=== PATIENT | male | born 1945 | race Caucasian/White ===

== ENCOUNTER 2016-10-28 14:36 | Observation (INO) | payer OTHER, MEDICARE ==
[2016-10-28] MEDS ORDERED: SODIUM CHLORIDE 0.9% 1,000 ML IV STA (15:11)
[2016-10-28 15:46] LABS: Appearance,Urine Clear (Clear); Basophils # (A) 0.1 k/uL (0-0.2); Basophils % (A) 1 %; Bilirubin,Urine Negative (Negative); CH 30.9; CHCM 33.8; Eosinophils # (A) 0.2 k/uL (0-0.7); Eosinophils % (A) 2 %; Glucose,Urine (UA) Negative (Negative); HCT 55.5 % (39.0-53.0); HDW 2.33; HGB 17.8 gm/dL (13.0-17.5); Ketones,Urine Negative (Negative); Leukocyte Esterase,Urine Negative (Negative); Luc % (Auto) 1; Lymphocytes # (A) 2.3 k/uL (1.0-4.8); Lymphocytes % (A) 25 %; MCH 29.4 pg (25.0-35.0); MCV 91.8 fL (80.0-100.0); Mean Platelet Volume 7.7; Monocytes # (A) 0.5 k/uL (0-1.0); Monocytes % (A) 6 %; Neutrophils # (A) 5.9 k/uL (1.3-7.7); Neutrophils % (A) 65 %; Nitrite,Urine Negative (Negative); PH, Urine 6.5 (5.0-8.0); Protein,Urine Negative (Negative); RBC 6.05 m/uL (4.30-5.90); RDW 12.3 % (11.5-15.5); Specific Gravity,Urine 1.003 (1.001-1.035); UA Billing (MACRO vs. MICRO) CHEM; Urobilinogen,Urine <2.0 mg/dL (<2.0); WBC 9.1 k/uL (3.8-10.6); WBC (Perox) 9.03
[2016-10-28 15:55] LABS: Partial Thromboplastin Time 25.9 sec (22.0-30.0); Prothrombin Time 10.2 sec (9.0-12.0)
[2016-10-28 16:02] LABS: ALT 39 U/L (21-72); AST 30 U/L (17-59); Alcohol 53 mg/dL; Alkaline Phosphatase 85 U/L (38-126); Anion Gap 14 mmol/L; Blood Urea Nitrogen 8 mg/dL (9-20); Calcium 10.2 mg/dL (8.4-10.2); Carbon Dioxide 27 mmol/L (22-30); Chloride 100 mmol/L (98-107); Glucose 95 mg/dL (74-99); Non-African American GFR(MDRD) >60 (>60 ml/min/1.73 sqM); Potassium 4.3 mmol/L (3.5-5.1); Sodium 141 mmol/L (137-145); Total Bilirubin 0.5 mg/dL (0.2-1.3)
[2016-10-28 16:07] LABS: Creatine Kinase 201 U/L (55-170)
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
[2016-10-28 16:19] LABS: Troponin I <0.012 ng/mL (0.000-0.034)
[2016-10-28 16:20] LABS: Creatine Kinase MB 6.2 ng/mL (0.0-2.4)
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
[2016-10-28] MEDS ORDERED: NALOXONE 0.4 MG/ML 1 ML VIAL IV PRN (18:02)
[2016-10-28] MEDS ORDERED: ACETAMINOPHEN TAB 325 MG TAB PO PRN (18:02)
[2016-10-28] MEDS ORDERED: IBUPROFEN 400 MG TAB PO PRN (18:02)
[2016-10-28] MEDS ORDERED: oxyCODONE-APAP 5-325MG 1 EACH TAB PO PRN (18:02)
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
[2016-10-28] MEDS ORDERED: BETAMETHASONE DIPROPIONATE 0.05% CREAM 15 GM TUBE TOPICAL PRN (18:07)
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
[2016-10-28] MEDS ORDERED: POLYMYXIN B-TRIMETHOPRIM (10,000-1) OPHTH DROPS 10 ML BTL RIGHT EYE SCH (22:00)
[2016-10-28 22:31] VITALS: BMI 27.8
[2016-10-29] MEDS: KETOROLAC 30 MG/ML 1 ML VIAL IVP PRN ×3 (02:15→20:42)
[2016-10-29 07:53] VITALS: RESP 18
[2016-10-29] MEDS ORDERED: CHROMIUM PICOLINATE 1000 MCG PO SCH (09:00)
[2016-10-29] MEDS ORDERED: GLUTAMINE 500 MG PO SCH (09:00)
[2016-10-29] MEDS ORDERED: NON-FORMULARY DRUG (Ubidecarenone [Co Q-10] 100 MG) PO SCH (09:00)
[2016-10-29] MEDS ORDERED: NON-FORMULARY DRUG (Fish Oil/Dha/Epa [Fish Oil 1,200 Mg Fish Oil] 1 CAP) PO SCH (09:00)
[2016-10-29] MEDS ORDERED: NON-FORMULARY DRUG (Gluc/Chon-Msm#1/C/Mang/Bos/Bor [Glucosamine-Chondroitin Tablet] 1 TAB) PO SCH (09:00)
--- NOTE | 2016-10-29 09:54 | US ---
EXAMINATION TYPE: US carotid duplex BILAT DATE OF EXAM: 10/29/2016 9:30 AM COMPARISON: NONE CLINICAL HISTORY: US. Syncope EXAM MEASUREMENTS: RIGHT: Peak Systolic Velocity (PSV) cm/sec ----- Right CCA: 62.4 ----- Right ICA: 84.0 ----- Right ECA: 91.8 ICA/CCA ratio: 1.3 RIGHT: End Diastole cm/sec ----- Right CCA: 14.4 ----- Right ICA: 28.3 ----- Right ECA: 7.6 LEFT: Peak Systolic Velocity (PSV) cm/sec ----- Left CCA: 71.4 ----- Left ICA: 90.5 ----- Left ECA: 99.5 ICA/CCA ratio: 1.3 LEFT: End Diastole cm/sec ----- Left CCA: 17.5 ----- Left ICA: 32.2 ----- Left ECA: 11.5 VERTEBRALS (direction of flow): Right Vertebral: Antegrade Left Vertebral: Antegrade Findings: Mild plaque noted bilateral bifurcations. No increased velocities. No significant stenosis. Incidental finding: complex solid nodule right lower lobe of thyroid = 1.1 x 1.0 x 1.1cm IMPRESSION: 1. Mild plaque with no significant hemodynamic stenosis bilaterally 2. Incidental note made of a 1.1 cm right thyroid nodule Criteria for Assigning % of Stenosis / Diameter reduction (Estimation based on the indirect measurements of the internal carotid artery velocities (ICA PSV). 1. Normal (no stenosis)=ICA PSV < 125 cm/s: ratio < 2.0: ICA EDV<40 cm/s. 2. Less than 50% stenosis=ICA PSV < 125 cm/s: ratio < 2.0: ICA EDV<40 cm/s. 3. 50 to 69% stenosis=ICA PSV of 125 to 230 cm/s: ration 2.0 ? 4.0: ICA EDV 40-100 cm/s. 4. Greater than 70% stenosis to near occlusion= ICA PSV > 230 cm/s: ratio > 4.0: ICA EDV > 100 cm/s. 5. Near occlusion= ICA PSV velocities may be low or undetectable: variable ratio and ICA EDV. 6. Total occlusion=unable to detect flow.
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
--- NOTE | 2016-10-29 11:03 | ECHOF ---
Referral Reason:syncope MEASUREMENTS -------- HEIGHT: 165.1 cm WEIGHT: 77.1 kg BP: 164/97 RVIDd: 2.5 cm (< 3.3) IVSd: 1.0 cm (0.6 - 1.1) LVIDd: 3.8 cm (3.9 - 5.3) LVPWd: 1.0 cm (0.6 - 1.1) IVSs: 1.6 cm LVIDs: 2.8 cm LVPWs: 1.6 cm LA Diam: 3.0 cm (2.7 - 3.8) LAESV Index (A-L): 26.24 ml/m Ao Diam: 3.6 cm (2.0 - 3.7) AV Cusp: 1.5 cm (1.5 - 2.6) LA Diam: 3.1 cm (2.7 - 3.8) MV EXCURSION: 8.330 mm (> 18.000) MV EF SLOPE: 62 mm/s (70 - 150) EPSS: 0.6 cm MV E Ben: 0.78 m/s MV DecT: 262 ms MV A Ben: 0.86 m/s MV E/A Ratio: 0.91 RAP: 5.00 mmHg RVSP: 23.12 mmHg FINDINGS -------- Sinus rhythm. This was a technically good study. Left ventricular wall thickness is normal. Overall left ventricular systolic function is normal with, an EF between 55 - 60 %. The right ventricle is normal in size. Normal LA size by volume 22+/-6 ml/m2. Aortic valve is trileaflet and is mildly thickened. The mitral valve leaflets are mildly thickened. Mild mitral annular calcification present. There is trace mitral regurgitation. Trace tricuspid regurgitation present. Right ventricular systolic pressure is normal at < 35 mmHg. Pulmonic valve appears structurally normal. The aortic root size is normal. Normal inferior vena cava with normal inspiratory collapse consistent with estimated right atrial pressure of 5 mmHg. Echo free space may represent effusion or a pericardial fat pad. CONCLUSIONS -------- 1. Sinus rhythm. 2. There is trace mitral regurgitation. 3. Trace tricuspid regurgitation present. 4. Right ventricular systolic pressure is normal at < 35 mmHg. 5. Pulmonic valve appears structurally normal. 6. The aortic root size is normal. 7. Echo free space may represent effusion or a pericardial fat pad. 8. This was a technically good study. 9. Left ventricular wall thickness is normal. 10. Overall left ventricular systolic function is normal with, an EF between 55 - 60 %. 11. The right ventricle is normal in size. 12. Normal LA size by volume 22+/-6 ml/m2. 13. Aortic valve is trileaflet and is mildly thickened. 14. The mitral valve leaflets are mildly thickened. 15. Mild mitral annular calcification present. CRA OFFICER: Elisha Chairez RDCS
[2016-10-29 11:56] LABS: Basophils % (A) 0 %; CH 30.8; CHCM 33.4; Eosinophils # (A) 0.1 k/uL (0-0.7); Eosinophils % (A) 1 %; HCT 50.4 % (39.0-53.0); HDW 2.27; HGB 16.4 gm/dL (13.0-17.5); Luc % (Auto) 1; Lymphocytes # (A) 1.8 k/uL (1.0-4.8); Lymphocytes % (A) 20 %; MCH 30.2 pg (25.0-35.0); MCHC 32.6 g/dL (31.0-37.0); MCV 92.6 fL (80.0-100.0); Mean Platelet Volume 7.3; Monocytes # (A) 0.5 k/uL (0-1.0); Monocytes % (A) 6 %; Neutrophils # (A) 6.5 k/uL (1.3-7.7); Neutrophils % (A) 72 %; RBC 5.44 m/uL (4.30-5.90); RDW 12.3 % (11.5-15.5); WBC 9.1 k/uL (3.8-10.6)
[2016-10-29 12:07] LABS: ALT 44 U/L (21-72); AST 29 U/L (17-59); Alkaline Phosphatase 73 U/L (38-126); Anion Gap 8 mmol/L; Blood Urea Nitrogen 11 mg/dL (9-20); Calcium 9.5 mg/dL (8.4-10.2); Carbon Dioxide 26 mmol/L (22-30); Chloride 103 mmol/L (98-107); Creatine Kinase 300 U/L (55-170); Glucose 93 mg/dL (74-99); Non-African American GFR(MDRD) >60 (>60 ml/min/1.73 sqM); Potassium 4.5 mmol/L (3.5-5.1); Sodium 137 mmol/L (137-145); Total Bilirubin 0.9 mg/dL (0.2-1.3); Total Protein 6.9 g/dL (6.3-8.2)
[2016-10-29] MEDS ORDERED: hydrALAZINE HCL 25 MG TAB PO STA (12:13)
[2016-10-29] MEDS: FAMOTIDINE 20 MG TAB PO SCH (12:27)
[2016-10-29] MEDS: ASPIRIN 81 MG CHEW PO SCH (12:27)
[2016-10-29] MEDS: NICOTINE 21MG/24HR PATCH TRANSDERM SCH (13:55)
[2016-10-29] MEDS ORDERED: LORazepam 2 MG/ML SYRINGE IV PRN ×3 (14:39)
[2016-10-29] MEDS: MULTIVITAMINS, THERA 1 EACH TAB PO SCH (17:38)
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
[2016-10-29] MEDS: HEPARIN SODIUM,PORCINE 5,000 UNIT/ML 1 ML VIAL SQ SCH ×2 (20:42→20:48)
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
[2016-10-30] MEDS: HEPARIN SODIUM,PORCINE 5,000 UNIT/ML 1 ML VIAL SQ SCH (08:55)
[2016-10-30] MEDS: FAMOTIDINE 20 MG TAB PO SCH (08:55)
[2016-10-30] MEDS: NICOTINE 21MG/24HR PATCH TRANSDERM SCH (08:55)
[2016-10-30] MEDS: ASPIRIN 81 MG CHEW PO SCH (08:56)
[2016-10-30] MEDS: MULTIVITAMINS, THERA 1 EACH TAB PO SCH (08:57)
[2016-10-30] MEDS ORDERED: amLODIPine 5 MG TAB PO SCH (09:00)
[2016-10-30] MEDS ORDERED: THIAMINE 100 MG TAB PO SCH (12:00)
[2016-10-30] MEDS ORDERED: FOLIC ACID 1 MG TAB PO SCH (12:00)
[2016-10-30] MEDS ORDERED: MULTIVITAMINS, THERA 1 EACH TAB PO SCH (12:00)
[2016-10-30 12:13] VITALS: BP 142/79; PULSE 69; TEMP 98.3
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
== END 2016-10-30 13:40 | disposition home or self-care (01) ==
LOC: EC 14:36 → 3OBS 18:02
PROVIDERS: ADMIT Internal Medicine; ATTEND Internal Medicine
DX: S20.212A Contusion of left front wall of thorax, initial encounter (principal); S20.211A Contusion of right front wall of thorax, initial encounter; R55 Syncope and collapse; V49.49XA Driver injured in collision with other motor vehicles in traffic accident, initial encounter; Y92.410 Unspecified street and highway as the place of occurrence of the external cause; M50.90 Cervical disc disorder, unspecified, unspecified cervical region; E04.1 Nontoxic single thyroid nodule; F10.129 Alcohol abuse with intoxication, unspecified; Y90.2 Blood alcohol level of 40-59 mg/100 ml; F17.200 Nicotine dependence, unspecified, uncomplicated; I10 Essential (primary) hypertension; I16.1 Hypertensive emergency; Z79.82 Long term (current) use of aspirin; Z82.49 Family history of ischemic heart disease and other diseases of the circulatory system; Z79.52 Long term (current) use of systemic steroids; Z79.899 Other long term (current) drug therapy
CPT/HCPCS: 99291; 96361 ×3; 36415; 94760; 95819; 93005; 93306; 80053 ×2; 82550 ×2; 82553; 84484 ×2; 85025 ×2; 85610; 85730; 81003; 80306; 80320; 72070; 71020; 72170; 93880; 72125; 70450; G0378 ×3; J1885

== ENCOUNTER 2016-11-06 17:28 | Inpatient (IN) | payer MEDICARE ==
[2016-11-06] MEDS ORDERED: SODIUM CHLORIDE 0.9% 1,000 ML IV STA (17:57)
[2016-11-06] MEDS ORDERED: RX INFO: IV CONTRAST WAS GIVEN 1 EACH MISC MISCELLANE PRN (17:57)
[2016-11-06] MEDS ORDERED: guaiFENesin-Coden 100-10MG/5ML 10 ML CUP PO STA (17:58)
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
[2016-11-06 18:35] LABS: Basophils % (A) 1 %; CHCM 34.8; Eosinophils # (A) 0.3 k/uL (0-0.7); Eosinophils % (A) 3 %; HCT 48.4 % (39.0-53.0); HDW 2.31; HGB 16.1 gm/dL (13.0-17.5); Luc # (Auto) 0.16; Luc % (Auto) 2; Lymphocytes # (A) 2.2 k/uL (1.0-4.8); Lymphocytes % (A) 29 %; MCH 29.7 pg (25.0-35.0); MCHC 33.3 g/dL (31.0-37.0); MCV 89.3 fL (80.0-100.0); Mean Platelet Volume 6.7; Monocytes # (A) 0.3 k/uL (0-1.0); Monocytes % (A) 4 %; Neutrophils # (A) 4.6 k/uL (1.3-7.7); Neutrophils % (A) 61 %; RBC 5.42 m/uL (4.30-5.90); RDW 12.3 % (11.5-15.5); WBC 7.6 k/uL (3.8-10.6); WBC (Perox) 7.51
[2016-11-06 18:48] LABS: Partial Thromboplastin Time 26.3 sec (22.0-30.0); Prothrombin Time 10.4 sec (9.0-12.0)
[2016-11-06 18:57] LABS: Creatine Kinase 87 U/L (55-170)
[2016-11-06 19:01] LABS: ALT 37 U/L (21-72); AST 30 U/L (17-59); Alkaline Phosphatase 60 U/L (38-126); Anion Gap 11 mmol/L; Blood Urea Nitrogen 11 mg/dL (9-20); Calcium 9.5 mg/dL (8.4-10.2); Carbon Dioxide 21 mmol/L (22-30); Chloride 98 mmol/L (98-107); Glucose 79 mg/dL (74-99); Non-African American GFR(MDRD) >60 (>60 ml/min/1.73 sqM); Sodium 130 mmol/L (137-145); Total Bilirubin 0.7 mg/dL (0.2-1.3); Total Protein 7.4 g/dL (6.3-8.2)
[2016-11-06 19:10] LABS: Creatine Kinase MB 1.8 ng/mL (0.0-2.4); Troponin I <0.012 ng/mL (0.000-0.034)
--- NOTE | 2016-11-06 19:10 | CT ---
EXAMINATION TYPE: CT angio chest DATE OF EXAM: 11/06/2016 6:28 PM COMPARISON: NONE HISTORY: 70-year-old male with hemoptysis and chest discomfort TECHNIQUE: Contiguous axial scanning of the chest performed with IV Contrast, patient injected with 1 00 mL of Omnipaque 350. Coronal and sagittal MIP reconstructions performed. CT DLP: 337.9 mGycm Automated exposure control for dose reduction was used. FINDINGS: Heart is normal size without pericardial effusion. Mild coronary artery calcifications are present. Ascending aorta is normal caliber with bovine configuration to the aortic arch. There is mild aneurys m of the upper descending thoracic aorta at 3.4 cm and ectasia of the lower descending thoracic aorta at 2.9 cm. Satisfactory opacification of the pulmonary arterial system without evidence for pulmonary embolus. There is moderate diffuse bronchial wall thickening and mild centrilobular emphysema in the upper to mid lungs. There is some patchy groundglass in both mid and lower lungs. No argenis consolidation or pl eural effusion.. Visualized upper abdomen shows a 1.8 cm nodule within the left adrenal gland with attenuation 1.8 Ian nsfield units compatible with a lipid rich adrenal adenoma. Bones: Endplate spondylosis mid to lower thoracic spine. No osseous destructive process. Appears to b e an obliquely oriented fracture of the mid sternal body. No significant adjacent soft tissue swellin g. Chronic injury is favored. IMPRESSION: 1. THERE APPEARS TO BE AN OBLIQUELY ORIENTED FRACTURE OF THE MID STERNAL BODY WITHOUT SIGNIFICANT ADJ ACENT SOFT TISSUE SWELLING. A CHRONIC INJURY WITH HEALED FRACTURE DEFORMITY IS FAVORED. THIS WILL REQ UIRE CLINICAL CORRELATION. 2. NO EVIDENCE FOR PULMONARY EMBOLUS. 3. COPD WITH MILD EMPHYSEMA. 4. PATCHY GROUNDGLASS IN THE LOWER LUNGS COULD REPRESENT AN INTERSTITIAL PNEUMONITIS SUCH DIP OR N SIP. 5. 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 6. 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
[2016-11-06 19:13] LABS: Potassium 5.1 mmol/L (3.5-5.1)
--- NOTE | 2016-11-06 19:16 | XR ---
EXAMINATION TYPE: XR chest 2V DATE OF EXAM: 11/06/2016 6:46 PM COMPARISON: CT chest earlier today and prior radiographs from 03/12/2017 HISTORY: 70-year-old male difficulty breathing and coughing up bright red blood today TECHNIQUE: PA and lateral views FINDINGS: Heart is normal size. Mild elongation of the thoracic aorta. Peribronchial cuffing with interstitial prominence similar to prior. Hyperinflation with flattening of hemidiaphragms. No consolidation or pl eural effusion. IMPRESSION: COPD. Suspect a prominent component of chronic bronchitis versus superimposed acute bronchitis.
[2016-11-06] MEDS ORDERED: PNEUMONIA PROTOCOL UTILIZED 1 EACH MISC PO PRN (20:19)
[2016-11-06] MEDS ORDERED: BETAMETHASONE DIPROPIONATE 0.05% CREAM 15 GM TUBE TOPICAL PRN (20:22)
[2016-11-06] MEDS ORDERED: guaiFENesin-Coden 100-10MG/5ML 10 ML CUP PO PRN (20:23)
[2016-11-06] MEDS ORDERED: FUROSEMIDE 10 MG/ML 2 ML VIAL IV ONE (20:32)
[2016-11-06] MEDS ORDERED: FAMOTIDINE 20 MG TAB PO PRN (20:45)
[2016-11-06] MEDS ORDERED: TAMSULOSIN 0.4 MG CAP.ER.24H PO SCH (21:57)
[2016-11-06] MEDS ORDERED: amLODIPine 2.5 MG TAB PO SCH (21:58)
[2016-11-06] MEDS: SODIUM CHLORIDE 0.9% 1,000 ML IV SCH (22:09)
[2016-11-06] MEDS: TAMSULOSIN 0.4 MG CAP.ER.24H PO SCH (22:16)
[2016-11-06] MEDS: amLODIPine 2.5 MG TAB PO SCH (22:17)
[2016-11-06 22:43] VITALS: BMI 28.2
--- NOTE | 2016-11-07 07:47 | XR ---
EXAMINATION TYPE: XR chest 2V DATE OF EXAM: 11/07/2016 6:43 AM COMPARISON: 11/06/2016 HISTORY: 70-year-old male coughing up blood, pneumonia TECHNIQUE: Frontal and lateral views FINDINGS: The cardiomediastinal silhouette, aorta, and pulmonary vasculature are within normal limits. There is mild diffuse interstitial prominence and mild hyperinflation with flattening of the hemidiaphragms a nd increased retrosternal clear space. No significant change from prior exam. No consolidation or ple ural effusion. IMPRESSION: Stable changes of COPD. No acute change seen.
[2016-11-07] MEDS: LACTOBACILLUS ACIDOPH & BULGAR 1 EACH PACKET PO SCH (08:22)
[2016-11-07] MEDS ORDERED: TAMSULOSIN 0.4 MG CAP.ER.24H PO SCH (09:00)
[2016-11-07] MEDS ORDERED: amLODIPine 2.5 MG TAB PO SCH (09:00)
[2016-11-07 10:23] LABS: Basophils # (A) 0.1 k/uL (0-0.2); Basophils % (A) 1 %; CH 30.7; CHCM 34.1; Eosinophils # (A) 0.2 k/uL (0-0.7); Eosinophils % (A) 3 %; HCT 51.2 % (39.0-53.0); HDW 2.31; HGB 16.9 gm/dL (13.0-17.5); Luc % (Auto) 1; Lymphocytes # (A) 1.9 k/uL (1.0-4.8); Lymphocytes % (A) 22 %; MCH 29.9 pg (25.0-35.0); MCHC 33.1 g/dL (31.0-37.0); MCV 90.3 fL (80.0-100.0); Mean Platelet Volume 7.5; Monocytes # (A) 0.5 k/uL (0-1.0); Monocytes % (A) 6 %; Neutrophils # (A) 5.8 k/uL (1.3-7.7); Neutrophils % (A) 67 %; RBC 5.67 m/uL (4.30-5.90); RDW 12.4 % (11.5-15.5); WBC 8.6 k/uL (3.8-10.6); WBC (Perox) 8.54
[2016-11-07 10:31] LABS: ALT 35 U/L (21-72); AST 20 U/L (17-59); Alkaline Phosphatase 73 U/L (38-126); Anion Gap 9 mmol/L; Blood Urea Nitrogen 15 mg/dL (9-20); Calcium 9.7 mg/dL (8.4-10.2); Carbon Dioxide 28 mmol/L (22-30); Chloride 98 mmol/L (98-107); Glucose 89 mg/dL (74-99); Non-African American GFR(MDRD) >60 (>60 ml/min/1.73 sqM); Potassium 4.9 mmol/L (3.5-5.1); Sodium 135 mmol/L (137-145); Total Bilirubin 0.5 mg/dL (0.2-1.3); Total Protein 7.1 g/dL (6.3-8.2)
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
[2016-11-07] MEDS: SODIUM CHLORIDE 0.9% 1,000 ML IV SCH (11:04)
[2016-11-07] MEDS: FAMOTIDINE 20 MG TAB PO SCH ×2 (11:42→21:00)
[2016-11-07] MEDS: AZITHROMYCIN 500 MG in SODIUM CHLORIDE 0.9% 250 ML IVPB SCH (11:43)
[2016-11-07] MEDS: IPRATROPIUM-ALBUTEROL 3 ML NEB INHALATION SCH ×3 (11:58→19:58)
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
[2016-11-07] MEDS ORDERED: IV VANCOMYCIN PER PHARMACY 1 EACH MISC MISCELLANE PRN (15:33)
[2016-11-07] MEDS: VANCOMYCIN 1,500 MG in SODIUM CHLORIDE 0.9% 250 ML IVPB SCH (17:30)
[2016-11-07] MEDS: amLODIPine 2.5 MG TAB PO SCH (21:00)
[2016-11-07] MEDS: TAMSULOSIN 0.4 MG CAP.ER.24H PO SCH (21:00)
[2016-11-08] MEDS: VANCOMYCIN 1,500 MG in SODIUM CHLORIDE 0.9% 250 ML IVPB SCH (05:29)
[2016-11-08] MEDS: IPRATROPIUM-ALBUTEROL 3 ML NEB INHALATION SCH ×2 (07:49→11:04)
[2016-11-08 08:19] LABS: ALT 36 U/L (21-72); AST 18 U/L (17-59); Alkaline Phosphatase 67 U/L (38-126); Anion Gap 7 mmol/L; Blood Urea Nitrogen 12 mg/dL (9-20); Calcium 9.4 mg/dL (8.4-10.2); Carbon Dioxide 28 mmol/L (22-30); Chloride 103 mmol/L (98-107); Glucose 88 mg/dL (74-99); Non-African American GFR(MDRD) >60 (>60 ml/min/1.73 sqM); Potassium 5.4 mmol/L (3.5-5.1); Sodium 138 mmol/L (137-145); Total Bilirubin 0.6 mg/dL (0.2-1.3); Total Protein 6.5 g/dL (6.3-8.2)
[2016-11-08 08:32] LABS: Basophils # (A) 0.1 k/uL (0-0.2); Basophils % (A) 1 %; CH 30.6; CHCM 33.5; Eosinophils # (A) 0.3 k/uL (0-0.7); Eosinophils % (A) 4 %; HCT 49.1 % (39.0-53.0); HDW 2.28; Luc % (Auto) 1; Lymphocytes # (A) 1.8 k/uL (1.0-4.8); Lymphocytes % (A) 23 %; MCH 29.8 pg (25.0-35.0); MCHC 32.6 g/dL (31.0-37.0); MCV 91.5 fL (80.0-100.0); Mean Platelet Volume 6.9; Monocytes # (A) 0.4 k/uL (0-1.0); Monocytes % (A) 5 %; Neutrophils % (A) 66 %; RBC 5.37 m/uL (4.30-5.90); RDW 12.3 % (11.5-15.5); WBC 7.6 k/uL (3.8-10.6); WBC (Perox) 7.79
[2016-11-08 09:15] VITALS: BP 128/85; RESP 20; TEMP 96.4
[2016-11-08] MEDS: FAMOTIDINE 20 MG TAB PO SCH (09:17)
[2016-11-08] MEDS: AZITHROMYCIN 500 MG in SODIUM CHLORIDE 0.9% 250 ML IVPB SCH (09:17)
[2016-11-08] MEDS: LACTOBACILLUS ACIDOPH & BULGAR 1 EACH PACKET PO SCH (09:17)
[2016-11-08 11:06] VITALS: PULSE 64
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
[2016-11-09] MEDS ORDERED: VANCOMYCIN TROUGH DUE 1 EACH MISC MISCELLANE ONE (05:00)
[2016-11-09] MEDS ORDERED: AZITHROMYCIN 500 MG TAB PO SCH (09:00)
== END 2016-11-08 14:34 | disposition home or self-care (01) | DRG 184 ==
LOC: EC 17:28 → 4MS4W 20:20
PROVIDERS: ADMIT Internal Medicine; ATTEND Internal Medicine
DX: S22.22XA Fracture of body of sternum, initial encounter for closed fracture (principal); R04.2 Hemoptysis; J44.0 Chronic obstructive pulmonary disease with (acute) lower respiratory infection; I71.2 Thoracic aortic aneurysm, without rupture; J20.8 Acute bronchitis due to other specified organisms; I10 Essential (primary) hypertension; D35.02 Benign neoplasm of left adrenal gland; N40.0 Benign prostatic hyperplasia without lower urinary tract symptoms; G89.29 Other chronic pain; M54.9 Dorsalgia, unspecified; F17.210 Nicotine dependence, cigarettes, uncomplicated; Z71.6 Tobacco abuse counseling; Z86.19 Personal history of other infectious and parasitic diseases; Z98.49 Cataract extraction status, unspecified eye; Z86.79 Personal history of other diseases of the circulatory system; Z71.89 Other specified counseling; Z82.49 Family history of ischemic heart disease and other diseases of the circulatory system; Z79.82 Long term (current) use of aspirin; Z91.048 Other nonmedicinal substance allergy status; Z79.899 Other long term (current) drug therapy; V43.52XA Car driver injured in collision with other type car in traffic accident, initial encounter
CPT/HCPCS: 36415; 71020; 71275; 80053; 82550; 82553; 84484; 85025; 85379; 85610; 85730; 87040; 87070; 87077; 87186; 87205; 93005; 94640; 96360; 96361; 96366; 96367; 99285

== ENCOUNTER → 2016-11-22 | Outpatient (CLI) | payer MEDICARE ==
--- NOTE | 2016-11-23 09:20 | US ---
EXAMINATION TYPE: US thyroid st tissue head/neck DATE OF EXAM: 11/22/2016 3:56 PM COMPARISON: ct in pacs CLINICAL HISTORY: thyroid Nodule E04.1. recent ct showed single nodule; not on thyroid meds, no prio r issues GLAND SIZE: Right Lobe: 4.3 x 2.2 x 1.5 cm Overall Parenchyma: homogenous Left Lobe: 4.5 x 1.7 x 1.2 cm Overall Parenchyma: homogeneous Isthmus Thickness: 0.6 cm NODULES RIGHT: # of nodules measured on right: 1 1. 1.2 X 0.9 x 1.0 cm mixed solid nodule at the mid to lower pole with well-defined margins. This nodule is wider than tall and shows only peripheral vascularity. Prior size: 1.2cm per ct LEFT: # of nodules measured on left: 0 ISTHMUS: # of nodules measured in the isthmus: 0 TECHNOLOGIST IMPRESSION: Bilateral neck scanned, no abnormal lymphadenopathy noted. Single rt nodule. IMPRESSION: 1 cm nodule mid pole posterior right thyroid nodule
== END | disposition home or self-care (01) ==
LOC: RADUSWWP 15:31
PROVIDERS: ATTEND Family Medicine
DX: E04.1 Nontoxic single thyroid nodule (principal); R04.2 Hemoptysis
CPT/HCPCS: 76536

== ENCOUNTER 2016-11-26 11:18 | Day surgery (SDC) | payer MEDICARE ==
[2016-11-24 10:47] VITALS: BMI 28.1
[~2016-11-26 11:18] MED LIST: ALBUTEROL NEB (CONC) 2.5 MG/0.5 ML INHALATION ONE; LACTATED RINGERS 1,000 ML IV ONE; LACTATED RINGERS 1,000 ML IV SCH; LIDOCAINE 2% (PF) 20 MG/ML 10ML INHALATION ONE; Pre Op ABX Message 1 EACH MISC MISCELLANE ONE
[2016-11-26 12:20] VITALS: RESP 16; TEMP 97.9
[2016-11-26] MEDS ORDERED: LIDOCAINE 1% 20 ML VIAL (10MG/ML) FOR IV START INTRADERMA ONE (12:33)
[2016-11-26] MEDS ORDERED: LIDOCAINE 1% INJ 10MG/ML (20 ML MDV) ONE (13:38)
[2016-11-26] MEDS ORDERED: GLYCOPYRROLATE 0.2 MG/ML 2 ML VIAL ONE (13:38)
[2016-11-26] MEDS ORDERED: MIDAZOLAM 2 MG/2 ML VIAL ONE (13:38)
[2016-11-26] MEDS ORDERED: KETAMINE 10 MG/ML 20 ML VIAL ONE (13:38)
[2016-11-26] MEDS ORDERED: PROPOFOL 10 MG/ML 20 ML VIAL IV ONE (13:38)
[2016-11-26] MEDS ORDERED: fentaNYL (PF) 50 MCG/ML 2 ML AMP ONE (13:38)
--- NOTE | 2016-11-26 14:01 | P.PCN ---
Date of Procedure: 11/26/16 Preoperative Diagnosis: Hemoptysis Postoperative Diagnosis: Diffuse tracheobronchitis, no endobronchial tumor or lesions identified, no evidence of any active bleeding Procedure(s) Performed: Flexible bronchoscopy, airway inspection, bronchioloalveolar lavage of the right middle lobe Anesthesia: MAC Surgeon: Monster Gomez Condition: stable Indications for Procedure: Hemoptysis Operative Findings: This procedure was done under conscious sedation. The anesthetic medication was given by anesthesia the bedside. After achieving adequate sedation, the flexible bronchoscope was inserted through the right nostril was advanced upper airway. Examination of the posterior pharynx, larynx, epiglottis and vocal cords was done and all of these upper airway structures were within normal limits. The visualized structures included the epiglottis, arytenoids, vallecula, true and false vocal cords. No lesions. No tumors. No masses. Vocal cords were fully functional and symmetrical. A total of 2 ML's of 1% lidocaine was applied to the vocal cord and following that the bronchoscope was passed into the upper trachea. Examination of the tracheal bronchial tree was done. The visualized airways into the trachea, bilateral mainstem bronchi, right upper lobe bronchus, right middle lobe bronchus, right lower lobe bronchus , left upper lobe bronchus, left lower lobe bronchus along with various segments and subsegments. All of these airways were quite patent. The bronchial mucosa was inflamed and there was mucosal inflammatory changes scattered throughout the patient's airway with areas of superficial punctate hemorrhagic sites that were not actively bleeding. The airway inspection showed no foreign body spirit no endobronchial tumors. No bronchial stenosis. Addendum of the procedure the bronchioloalveolar lavage of the right middle lobe was done. A total of 80 MO's of fluid was infused and 20 cc was suctioned back. Bronchoscope was moved after performing aerobic airway suctioning and the patient was transferred recovery in stable condition.
[2016-11-26 14:49] VITALS: BP 137/76; PULSE 78
== END 2016-11-26 15:00 | disposition home or self-care (01) ==
LOC: ORWHC2ENDO 11:18
PROVIDERS: ATTEND Internal Medicine Critical Care Medicine
DX: J40 Bronchitis, not specified as acute or chronic (principal); R04.2 Hemoptysis; J44.9 Chronic obstructive pulmonary disease, unspecified; F17.200 Nicotine dependence, unspecified, uncomplicated; I10 Essential (primary) hypertension; N40.0 Benign prostatic hyperplasia without lower urinary tract symptoms; Z87.01 Personal history of pneumonia (recurrent); Z82.49 Family history of ischemic heart disease and other diseases of the circulatory system; Z79.82 Long term (current) use of aspirin; Z79.899 Other long term (current) drug therapy
CPT/HCPCS: 94640; 87798 ×4; 87496; 87498; 87529 ×2; 88108; 88305; 87252; 87502 ×2; 87070; 87205; 87116; 87102; 87206; 31624; J2250; J2001 ×2; J3010; J2704; 99153

== ENCOUNTER 2017-02-22 06:25 | Day surgery (SDC) | payer MEDICARE, OTHER ==
[2017-02-21 08:18] VITALS: BMI 28.6
[~2017-02-22 06:25] MED LIST changes: -ALBUTEROL NEB (CONC) 2.5 MG/0.5 ML INHALATION ONE; -LACTATED RINGERS 1,000 ML IV ONE; +LIDOCAINE 1% 20 ML VIAL (10MG/ML) FOR IV START INTRADERMA PRN; -LIDOCAINE 2% (PF) 20 MG/ML 10ML INHALATION ONE; -Pre Op ABX Message 1 EACH MISC MISCELLANE ONE
[2017-02-22] MEDS: FLURBIPROFEN 0.03% OPHTH DROPS 2.5 ML BTL OP ONE ×3 (06:47→07:08)
[2017-02-22 06:50] VITALS: TEMP 98.2
[2017-02-22] MEDS: CYCLOPENTOLATE 1% OPHTH SOLN 2 ML BTL OP ONE ×3 (06:50→07:11)
[2017-02-22] MEDS: PHENYLEPHRINE 10% OPHTH DROPS 5 ML BTL OP ONE ×3 (06:54→07:14)
[2017-02-22] MEDS ORDERED: BALANCED SALT IRRIG SOLN COMB2 15 ML IRRIG.SOLN IRRIGATION ONE (07:41)
[2017-02-22] MEDS ORDERED: PROPOFOL 10 MG/ML 20 ML VIAL IV ONE (07:42)
[2017-02-22] MEDS ORDERED: TETRACAINE 0.5% OPHTH (PF) DROPS 4 ML BTL LEFT EYE ONE (07:42)
[2017-02-22] MEDS ORDERED: EPINEPHrine (PF) 0.5 ML in BALANCED SALT IRRIG SOLN COMB2 500 ML IRRIGATION ONE (07:51)
[2017-02-22] MEDS ORDERED: HYALURONATE SODIUM INTRAOCULAR 1 EACH SYRINGE (10MG/ML) INTRAOCULA ONE (07:51)
[2017-02-22 08:13] VITALS: RESP 16
--- NOTE | 2017-02-22 08:15 | P.OP ---
Date of Procedure: 02/22/17 Procedure(s) Performed: PREOPERATIVE DIAGNOSIS: Cataract, left eye. POSTOPERATIVE DIAGNOSIS: Cataract, left eye. OPERATION: Phacoemulsification cataract, left eye. DESCRIPTION OF PROCEDURE: The patient was taken to the preoperative holding area. Intravenous Propofol was given so as to bring about adequate sedation. The following mixture was given for local anesthesia: 5 mL of 2% lidocaine, 5 mL of 0.75% Marcaine, and 1 mL of Wydase. Approximately 4 mL was injected in the retrobulbar space of the surgical eye. Additional 1 mL was then directed to the temporal area of the surgical eye. This was performed to allow adequate neurological block of the facial muscles. The patient was revived and then taken into the operative room. The patient was prepped and draped in the usual sterile manner for the operative eye. A lid speculum was put into position. The conjunctiva was resected back from the limbus in the 12 o'clock position. Bleeding was controlled with electrocautery. A #69 blade was then used and a half-thickness scleral incision approximately 1-mm posterior to the limbus was made on bare sclera. This was shelved in the clear cornea using a crescent knife. The patient's steep axis of astigmatism was marked using a pre-inked corneal marking device. Next a 15-degree blade was used to make a stab incision at the 3 o'clock position at the corneolimbal interface. Keratome blade was then used and the superior wound was extended into the anterior chamber. Viscoelastic was injected into the anterior chamber and to maintain its form. Next, a cystotome was used and a continuous anterior capsulotomy was made without difficulty. Hydrodissection using a blunt cannula and BSS was performed. Phaco probe was then employed and a groove extending from 12 to 6 o' clock in the lens was created. A Amilcar wand was used through the stab incision so as to perform a divide and conquer technique. Next an irrigation aspiration probe was utilized and any residual cortex was removed from the eye. Again, viscoelastic was injected into the anterior chamber. An Massimo toric posterior chamber lens implant was placed in the cartridge and injected into the anterior chamber without difficulty. The SinSendRRey hook was utilized to spin the lens into position and this was again performed without any difficulty. The irrigation and aspiration probe was again employed and any residual viscoelastic was removed from the eye. Then BSS was injected into the limbal stab incision and the anterior chamber re-inflated. The conjunctiva was reapproximated using electrocautery. One drop of 0.25% Timoptic was placed over the corneal along with TobraDex ophthalmic ointment. Two sterile patches and a Dominguez eye shield were taped into position. The patient was transported to the recovery room in stable condition. Pathology: none sent Condition: stable Disposition: same day
[2017-02-22 08:33] VITALS: BP 147/89; PULSE 55
[2017-02-22] MEDS ORDERED: TIMOLOL 0.5% OPHTH SOLN (PF) 0.2 ML DROPERETTE OP ONE (23:00)
[2017-02-22] MEDS ORDERED: BUPIVACAINE (PF) 0.75% 5 ML, LIDOCAINE 4% (PF) 5 ML, HYALURONIDASE, HUMAN RECOMB 150 UNIT MISCELLANE ONE ×3 (23:00)
[2017-02-22] MEDS ORDERED: GENTAMICIN/PREDNISOL AC OPHTH OINT 3.5GM OPHTHALMIC ONE (23:00)
== END 2017-02-22 08:50 | disposition home or self-care (01) ==
LOC: OR 06:25
PROVIDERS: ATTEND Ophthalmology
DX: H26.9 Unspecified cataract (principal); H57.03 Miosis; J44.9 Chronic obstructive pulmonary disease, unspecified; F17.200 Nicotine dependence, unspecified, uncomplicated; N40.0 Benign prostatic hyperplasia without lower urinary tract symptoms; K21.9 Gastro-esophageal reflux disease without esophagitis; Z79.899 Other long term (current) drug therapy
CPT/HCPCS: 66984; V2787; C1780; J2001; J3470; J0171; J2704

== ENCOUNTER → 2018-02-02 | Outpatient (CLI) | payer MEDICARE ==
--- NOTE | 2018-02-02 14:10 | US ---
EXAMINATION TYPE: US thyroid st tissue head/neck DATE OF EXAM: 02/02/2018 COMPARISON: Thyroid ultrasound November 22, 2016. CTA chest November 06, 2016. CLINICAL HISTORY: Thyroid Nodule E04.1. GLAND SIZE: Right Lobe: 4.2 x 1.9 x 1.7 cm Overall Parenchyma: homogenous Left Lobe: 4.2 x 1.0x 1.6 cm Overall Parenchyma: homogeneous Isthmus Thickness: 0.6 cm NODULES RIGHT: # of nodules measured on right: 1 1. 1.2 X 1.0 x 1.1 cm isoechoic mixed nodule at the mid lower pole with well-defined margins. This nodule is taller than wide and shows no intranodular vascularity. Prior size: 1.2 x 0.9 x 1.0 cm LEFT: # of nodules measured on left: 0 ISTHMUS: # of nodules measured in the isthmus: 0 Bilateral neck scanned: small lymph node seen superomedial left neck = 0.8 x 0.4 x 0.3cm. There is stable 1.2 cm well-defined mixed nodule mid to lower pole level right thyroid. No new nodule s are seen. Technologist ca benign subcentimeter lymph node in the left neck on current study towa rds the end of exam. IMPRESSION: Overall stable findings, stable 1.2 cm right thyroid nodule without new nodule identified.
== END ==
LOC: RADUSWWP 09:04
PROVIDERS: ATTEND Surgery
DX: E04.1 Nontoxic single thyroid nodule (principal)
CPT/HCPCS: 76536

== ENCOUNTER 2021-04-06 | Inpatient (IN) | payer MEDICARE | END 2021-04-08 10:30 | disposition home or self-care (01) | DRG 65 | PROVIDERS: ADMIT Internal Medicine | CPT/HCPCS: 36415; 70450; 70496; 70498; 70551; 71046; 80053; 80061; 84439; 84443; 85025; 85610; 85730; 87635; 93005; 93306; 94760; 99285 ==

== ENCOUNTER 2021-05-08 14:44 | Emergency (ER) | payer MEDICARE ==
[2021-05-08 14:57] VITALS: TEMP 98.6
[2021-05-08 15:27] VITALS: RESP 18
[2021-05-08 15:38] LABS: Basophils # (A) 0.1 k/uL (0-0.2); Basophils % (A) 1 %; Eosinophils # (A) 0.3 k/uL (0-0.7); Eosinophils % (A) 3 %; HCT 45.8 % (39.0-53.0); HGB 16.4 gm/dL (13.0-17.5); Lymphocytes % (A) 20 %; MCH 31.2 pg (25.0-35.0); MCHC 35.7 g/dL (31.0-37.0); MCV 87.3 fL (80.0-100.0); Mean Platelet Volume 7.3; Monocytes # (A) 0.5 k/uL (0-1.0); Monocytes % (A) 5 %; Neutrophils # (A) 7.1 k/uL (1.3-7.7); Neutrophils % (A) 71 %; Platelet Count 292 k/uL (150-450); RBC 5.24 m/uL (4.30-5.90); RDW 12.4 % (11.5-15.5)
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
[2021-05-08 15:46] LABS: African American GFR (CKD) >90 (>60 ml/min/1.73 sqM); Anion Gap 9 mmol/L; Blood Urea Nitrogen 10 mg/dL (9-20); Calcium 9.5 mg/dL (8.4-10.2); Carbon Dioxide 23 mmol/L (22-30); Chloride 99 mmol/L (98-107); Glucose 87 mg/dL (74-99); Non-African American GFR(CKD) >90 (>60 ml/min/1.73 sqM); Potassium 4.6 mmol/L (3.5-5.1); Sodium 131 mmol/L (137-145)
[2021-05-08 15:54] LABS: D-Dimer 0.36 mg/L FEU (<0.60); Prothrombin Time 10.4 sec (9.0-12.0)
[2021-05-08 15:55] LABS: Partial Thromboplastin Time 25.4 sec (22.0-30.0)
--- NOTE | 2021-05-08 16:30 | XR ---
EXAMINATION TYPE: XR chest 2V DATE OF EXAM: 05/08/2021 COMPARISON: 04/06/2021 TECHNIQUE: PA and lateral views submitted. HISTORY: Hemoptysis FINDINGS: The lungs are clear and there is no pneumothorax, pleural effusion, or focal pneumonia. Heart size normal. No overt failure. Arthropathy of the shoulders with biapical pleural thickening. Hypertrophic and degenerative changes spine. Mild hyperinflation. IMPRESSION: 1. No acute process. Correlate for COPD.
[2021-05-08] MEDS ORDERED: RX INFO: IV CONTRAST WAS GIVEN 1 EACH MISC MISCELLANE PRN (16:37)
--- NOTE | 2021-05-08 17:30 | CT ---
EXAMINATION TYPE: CT chest w con DATE OF EXAM: 05/08/2021 COMPARISON: 11/06/2016 HISTORY: hemoptysis CT DLP: 381.4 mGycm, Automated exposure control for dose reduction was used. CONTRAST: Performed injected with 100 mL of Isovue 300. TECHNIQUE: Axial images were obtained at 5 mm thick sections. Reconstructed images are reviewed on Accion computer in the coronal plane. FINDINGS: Portion of the thyroid visualized is normal. There is a 0.4 cm density superior segment right lower lobe. Series 201 image 40 lung windows this ma y be a change. Follow-up in 6 months is recommended. No enlarged mediastinal or hilar adenopathy is evident. The ascending aorta diameter at the level o f the main pulmonary artery is 3.7 cm. The main pulmonary artery diameter at the bifurcation is 2.[address] sections are obtained through the upper abdomen. Abdomen is essentially unremarkable. IMPRESSIONS: 1. No suspicious abnormality to account for hemoptysis. 2. A nodule may be present within the right lower lobe. Follow-up CT chest in 6 months is recommended
[2021-05-08 18:13] VITALS: BP 154/93; PULSE 73
== END 2021-05-08 18:13 | disposition home or self-care (01) ==
LOC: EC 14:44
DX: R04.2 Hemoptysis (principal); I10 Essential (primary) hypertension; J44.9 Chronic obstructive pulmonary disease, unspecified; K21.9 Gastro-esophageal reflux disease without esophagitis; M19.90 Unspecified osteoarthritis, unspecified site; N40.0 Benign prostatic hyperplasia without lower urinary tract symptoms; F17.200 Nicotine dependence, unspecified, uncomplicated; Z86.73 Personal history of transient ischemic attack (TIA), and cerebral infarction without residual deficits; Z87.19 Personal history of other diseases of the digestive system; Z86.018 Personal history of other benign neoplasm; Z79.01 Long term (current) use of anticoagulants; Z79.02 Long term (current) use of antithrombotics/antiplatelets; Z79.82 Long term (current) use of aspirin; Z79.899 Other long term (current) drug therapy
CPT/HCPCS: 36415; 93005; 86900; 86901; 85379; 80048; 85025; 85610; 85730; 86850; 71046; 71260; 99284; Q9967

== ENCOUNTER → 2022-04-21 | Outpatient (CLI) | payer MEDICARE ==
--- NOTE | 2022-04-21 11:15 | FL ---
EXAMINATION TYPE: FL barium swallow DATE OF EXAM: 04/21/2022 COMPARISON: None HISTORY: Food sticking TECHNIQUE: A double air contrast esophagram study is performed. FINDINGS: The esophagus dilates to normal caliber has normal contour to the gastroesophageal junction. Gastroes ophageal junction opens to normal caliber. No intraluminal or extramural defects are evident. There a re scattered small tertiary contractions evident during the exam. There is complete stripping of the esophageal bolus in the horizontal drinking position. Images: 109. Fluoroscopy time: 35 seconds. IMPRESSIONS: 1. Mild presbyesophagus.
== END | disposition home or self-care (01) ==
LOC: RADUSWWP 09:51
PROVIDERS: ATTEND Family Medicine
DX: K22.9 Disease of esophagus, unspecified (principal)
CPT/HCPCS: 74220

== ENCOUNTER 2023-10-21 13:33 | Emergency (ER) | payer MEDICARE ==
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
[2023-10-21 14:00] VITALS: BP 123/78; PULSE 67; RESP 18; TEMP 98.5
[2023-10-21] MEDS ORDERED: SULFAMETH-TMP DS STARTER PACK 2 TAB BTL PO STA (14:40)
== END 2023-10-21 14:58 | disposition home or self-care (01) ==
LOC: EC 13:33
DX: Z76.0 Encounter for issue of repeat prescription (principal); J44.9 Chronic obstructive pulmonary disease, unspecified; I10 Essential (primary) hypertension; K21.9 Gastro-esophageal reflux disease without esophagitis; F17.200 Nicotine dependence, unspecified, uncomplicated; Z79.82 Long term (current) use of aspirin; Z79.899 Other long term (current) drug therapy
CPT/HCPCS: 99282

== ENCOUNTER 2023-11-03 07:54 | Emergency (ER) | payer MEDICARE ==
[2023-11-03 08:28] VITALS: TEMP 98
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
[2023-11-03 09:32] LABS: Basophils % (A) 0 %; Eosinophils % (A) 0 %; HCT 29.6 % (39.0-53.0); HGB 9.7 gm/dL (13.0-17.5); Lymphocytes # (A) 1.2 k/uL (1.0-4.8); Lymphocytes % (A) 17 %; MCHC 32.7 g/dL (31.0-37.0); MCV 85.5 fL (80.0-100.0); Mean Platelet Volume 7.6; Monocytes # (A) 0.5 k/uL (0-1.0); Monocytes % (A) 7 %; Neutrophils # (A) 5.4 k/uL (1.3-7.7); Neutrophils % (A) 73 %; Platelet Count 479 k/uL (150-450); RBC 3.46 m/uL (4.30-5.90); RDW 13.6 % (11.5-15.5); WBC 7.4 k/uL (3.8-10.6)
[2023-11-03 09:46] LABS: ALT 17 U/L (4-49); AST 23 U/L (17-59); African American GFR (CKD) >90 (>60 ml/min/1.73 sqM); Albumin 3.3 g/dL (3.5-5.0); Alkaline Phosphatase 150 U/L (38-126); Anion Gap 9 mmol/L; Blood Urea Nitrogen 26 mg/dL (9-20); C Reactive Protein 2.2 mg/dL (<1.0); Calcium 8.9 mg/dL (8.4-10.2); Carbon Dioxide 20 mmol/L (22-30); Chloride 102 mmol/L (98-107); Glucose 90 mg/dL (74-99); Non-African American GFR(CKD) 80 (>60 ml/min/1.73 sqM); Potassium 4.9 mmol/L (3.5-5.1); Sodium 131 mmol/L (137-145); Total Bilirubin 0.3 mg/dL (0.2-1.3); Total Protein 6.4 g/dL (6.3-8.2)
[2023-11-03] MEDS ORDERED: HYDROmorphone 0.5 MG/0.5 ML SYRINGE IVP STA (10:09)
[2023-11-03] MEDS ORDERED: KETOROLAC 15 MG/ML 1 ML VIAL IVP STA (10:09)
[2023-11-03] MEDS ORDERED: ONDANSETRON 4 MG/2 ML VIAL IVP STA (10:09)
--- NOTE | 2023-11-03 11:15 | XR ---
EXAMINATION TYPE: XR knee complete RT DATE OF EXAM: 11/03/2023 COMPARISON: No comparison images at this location HISTORY: Pain since surgery TECHNIQUE: 3 view right knee FINDINGS: There appear to be medullary rods within the femur and tibia. There is been resection of th e joint space with cement present through this region. Fracture of the screws at the joint level is n ot excluded. Soft tissue swelling is over the soft tissues. Surgical vascular clips are present withi n the proximal foreleg. IMPRESSION: 1. No acute osseous fractures identified. Cement is present at the knee joint space. 2. Fracture of the screws at the level of the joint space is not excluded. 3. Soft tissue swelling
--- NOTE | 2023-11-03 11:19 | US ---
EXAMINATION TYPE: US venous doppler duplex LE RT DATE OF EXAM: 11/03/2023 10:10 AM COMPARISON: NONE CLINICAL INDICATION: Male, 77 years old with history of pain; Right leg pain SIDE PERFORMED: Right TECHNIQUE: The lower extremity deep venous system is examined utilizing real time linear array sonog petar with graded compression, doppler sonography and color-flow sonography. VESSELS IMAGED: Common Femoral Vein Deep Femoral Vein Greater Saphenous Vein * Femoral Vein Popliteal Vein Small Saphenous Vein * Proximal Calf Veins (* superficial vessels) Right Leg: Appears negative for DVT IMPRESSION: 1. Right lower extremity ultrasound negative for deep venous thrombosis.
[2023-11-03] MEDS ORDERED: VANCOMYCIN IV PER PHARMACY 1 EACH MISC MISCELLANE PRN (11:40)
[2023-11-03] MEDS ORDERED: VANCOMYCIN 1,250 MG in SODIUM CHLORIDE 0.9% 250 ML IVPB STA (11:43)
[2023-11-03 14:50] VITALS: BP 113/66; PULSE 58; RESP 18
== END 2023-11-03 14:25 | disposition other institution (70) ==
LOC: EC 07:54
DX: T84.620A Infection and inflammatory reaction due to internal fixation device of right femur, initial encounter (principal); M00.9 Pyogenic arthritis, unspecified; I10 Essential (primary) hypertension; J44.9 Chronic obstructive pulmonary disease, unspecified; M19.90 Unspecified osteoarthritis, unspecified site; F17.200 Nicotine dependence, unspecified, uncomplicated; Z79.02 Long term (current) use of antithrombotics/antiplatelets; Z79.899 Other long term (current) drug therapy; Z91.048 Other nonmedicinal substance allergy status
CPT/HCPCS: 36415; 80053; 83605; 85025; 86140; 87040; 73562; 93971; 99285; 96365; 96366; 96375 ×3; J3370; J2405; J1885; J1170

== ENCOUNTER 2023-12-11 09:22 | Observation (INO) | payer MEDICARE ==
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
[2023-12-11] MEDS: ACETAMINOPHEN TAB 500 MG TAB PO STA (09:51)
[2023-12-11] MEDS: SODIUM CHLORIDE 0.9% 1,000 ML IV STA (09:52)
[2023-12-11 09:56] LABS: Basophils % (A) 1 %; Eosinophils # (A) 0.1 k/uL (0-0.7); Eosinophils % (A) 1 %; HGB 11.7 gm/dL (13.0-17.5); Lymphocytes # (A) 1.3 k/uL (1.0-4.8); Lymphocytes % (A) 16 %; MCH 27.2 pg (25.0-35.0); MCHC 32.5 g/dL (31.0-37.0); MCV 83.7 fL (80.0-100.0); Mean Platelet Volume 8.1; Monocytes # (A) 0.8 k/uL (0-1.0); Monocytes % (A) 9 %; Neutrophils # (A) 5.8 k/uL (1.3-7.7); Neutrophils % (A) 72 %; Platelet Count 298 k/uL (150-450); RDW 15.1 % (11.5-15.5); WBC 8.1 k/uL (3.8-10.6)
[2023-12-11 10:04] LABS: INR 1.1 (<1.2); Partial Thromboplastin Time 25.6 sec (22.0-30.0); Prothrombin Time 11.7 sec (10.0-12.5)
[2023-12-11 10:06] LABS: ALT 10 U/L (4-49); AST 21 U/L (17-59); African American GFR (CKD) >90 (>60 ml/min/1.73 sqM); Albumin 3.5 g/dL (3.5-5.0); Alkaline Phosphatase 94 U/L (38-126); Anion Gap 8 mmol/L; Blood Urea Nitrogen 19 mg/dL (9-20); Calcium 9.1 mg/dL (8.4-10.2); Carbon Dioxide 22 mmol/L (22-30); Chloride 105 mmol/L (98-107); Glucose 98 mg/dL (74-99); Magnesium 1.7 mg/dL (1.6-2.3); Non-African American GFR(CKD) >90 (>60 ml/min/1.73 sqM); Potassium 3.9 mmol/L (3.5-5.1); Sodium 135 mmol/L (137-145); Total Protein 6.2 g/dL (6.3-8.2)
--- NOTE | 2023-12-11 10:06 | XR ---
EXAMINATION TYPE: XR chest 2V DATE OF EXAM: 12/11/2023 10:02 AM CLINICAL INDICATION:Male, 77 years old with history of Weakness; COMPARISON: Chest radiographs from 05/08/2021 TECHNIQUE: XR chest 2V Frontal and lateral views of the chest. FINDINGS: Lungs/Pleura: There is no evidence of pleural effusion, focal consolidation, or pneumothorax. Pulmonary vascularity: Unremarkable. Heart/mediastinum: Cardiomediastinal silhouette is unremarkable. Musculoskeletal: No acute osseous pathology. IMPRESSION: No acute cardiopulmonary disease/process.
[2023-12-11 12:51] LABS: Appearance,Urine Clear (Clear); Bilirubin,Urine Negative (Negative); Blood,Urine Negative (Negative); Color,Urine Light Yellow; Glucose,Urine (UA) Negative (Negative); Ketones,Urine Negative (Negative); Leukocyte Esterase,Urine Negative (Negative); Nitrite,Urine Negative (Negative); PH, Urine 6.5 (5.0-8.0); Protein,Urine Negative (Negative); Urobilinogen,Urine <2.0 mg/dL (<2.0)
[2023-12-11] MEDS ORDERED: NALOXONE 0.4 MG/ML 1 ML VIAL IV PRN (14:37)
[2023-12-11] MEDS: SODIUM CHLORIDE 0.9% 1,000 ML IV SCH (15:45)
[2023-12-11] MEDS ORDERED: ACETAMINOPHEN TAB 325 MG TAB PO PRN (16:54)
[2023-12-11] MEDS: TIMOLOL 0.25% OPHTH DROPS 5 ML BTL RIGHT EYE SCH (21:48)
[2023-12-11] MEDS: MELATONIN 1 MG TAB PO SCH (21:48)
[2023-12-11] MEDS: ATORVASTATIN 40 MG TAB PO SCH (21:48)
[2023-12-11] MEDS: HYDROcodone/APAP 5-325MG 1 EACH TAB PO PRN (22:33)
[2023-12-12] MEDS: SENNOSIDES-DOCUSATE SODIUM 1 EACH TAB PO SCH (08:21)
[2023-12-12] MEDS: CHOLECALCIFEROL 125 MCG (5000 IU) TABLET PO SCH (08:21)
[2023-12-12] MEDS: CYANOCOBALAMIN 500 MCG TAB PO SCH (08:21)
[2023-12-12] MEDS: LOSARTAN 50 MG TAB PO SCH (08:21)
[2023-12-12] MEDS: PANTOPRAZOLE 40 MG TABLET PO SCH (08:21)
[2023-12-12] MEDS: CLOPIDOGREL 75 MG TAB PO SCH (08:21)
[2023-12-12] MEDS: TAMSULOSIN 0.4 MG CAP.ER.24H PO SCH (08:21)
[2023-12-12] MEDS: ASPIRIN 81 MG PO SCH (08:21)
[2023-12-12 10:58] LABS: Basophils # (A) 0.05 X 10*3/uL (0.00-0.10); Basophils % (A) 0.8 %; Eosinophils # (A) 0.25 X 10*3/uL (0.04-0.35); Eosinophils % (A) 3.9 %; HCT 32.2 % (39.6-50.0); HGB 10.1 g/dL (13.0-17.0); Lymphocytes # (A) 1.96 X 10*3/uL (0.90-5.00); Lymphocytes % (A) 30.7 %; MCH 26.8 pg (27.0-32.0); MCHC 31.4 g/dL (32.0-37.0); MCV 85.4 FL (80.0-97.0); Mean Platelet Volume 10.9 FL (9.5-12.2); Monocytes # (A) 0.75 X 10*3/uL (0.20-1.00); Monocytes % (A) 11.7 %; NRBC Per 100 WBC 0 X 10*3/uL (0.00-0.01); Neutrophils # (A) 3.37 X 10*3/uL (1.80-7.70); Neutrophils % (A) 52.7 %; Platelet Count 306 X 10*3/uL (140-440); RBC 3.77 X 10*6/uL (4.40-5.60); RDW 15.8 % (11.5-14.5); WBC 6.39 X 10*3/uL (4.50-10.00)
[2023-12-12 11:41] LABS: ALT 8 U/L (10-49); AST 10 U/L (14-35); Albumin 3.3 g/dL (3.8-4.9); Albumin/Globulin Ratio 1.65 Ratio (1.60-3.17); Alkaline Phosphatase 87 U/L (41-126); BUN/Creat Ratio 17.71 Ratio (12.00-20.00); Blood Urea Nitrogen 12.4 mg/dL (9.0-27.0); Calcium 8.7 mg/dL (8.7-10.3); Carbon Dioxide 24.1 mmol/L (21.6-31.8); Chloride 106 mmol/L (96-109); Glucose 84 mg/dL (70-110); Potassium 3.9 mmol/L (3.5-5.5); Sodium 139 mmol/L (135-145); Total Bilirubin 0.4 mg/dL (0.3-1.2); Total Protein 5.3 g/dL (6.2-8.2)
[2023-12-12 12:15] VITALS: BMI 22.9
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
[2023-12-13] MEDS: ENOXAPARIN 40 MG/0.4 ML SYRINGE SQ SCH (08:40)
[2023-12-13 08:50] LABS: ALT 8 U/L (10-49); AST 11 U/L (14-35); Albumin 3.2 g/dL (3.8-4.9); Albumin/Globulin Ratio 1.52 Ratio (1.60-3.17); Alkaline Phosphatase 99 U/L (41-126); BUN/Creat Ratio 17.71 Ratio (12.00-20.00); Blood Urea Nitrogen 12.4 mg/dL (9.0-27.0); Calcium 8.5 mg/dL (8.7-10.3); Carbon Dioxide 24.9 mmol/L (21.6-31.8); Chloride 107 mmol/L (96-109); Globulin 2.1 g/dL (1.6-3.3); Glucose 95 mg/dL (70-110); Potassium 4.1 mmol/L (3.5-5.5); Sodium 139 mmol/L (135-145); Total Bilirubin 0.3 mg/dL (0.3-1.2); Total Protein 5.3 g/dL (6.2-8.2)
[2023-12-13 08:53] LABS: Basophils # (A) 0.05 X 10*3/uL (0.00-0.10); Basophils % (A) 0.7 %; Eosinophils # (A) 0.31 X 10*3/uL (0.04-0.35); Eosinophils % (A) 4.4 %; HCT 33.1 % (39.6-50.0); HGB 10.4 g/dL (13.0-17.0); Lymphocytes # (A) 2.16 X 10*3/uL (0.90-5.00); Lymphocytes % (A) 30.5 %; MCH 26.5 pg (27.0-32.0); MCHC 31.4 g/dL (32.0-37.0); MCV 84.4 FL (80.0-97.0); Mean Platelet Volume 10.6 FL (9.5-12.2); Monocytes # (A) 0.58 X 10*3/uL (0.20-1.00); Monocytes % (A) 8.2 %; NRBC Per 100 WBC 0 X 10*3/uL (0.00-0.01); Neutrophils # (A) 3.96 X 10*3/uL (1.80-7.70); Neutrophils % (A) 55.8 %; Platelet Count 322 X 10*3/uL (140-440); RBC 3.92 X 10*6/uL (4.40-5.60); RDW 15.8 % (11.5-14.5); WBC 7.09 X 10*3/uL (4.50-10.00)
--- NOTE | 2023-12-13 09:20 | P.PN ---
Subjective Progress Note Date: 12/13/23 Thom Trevino, is a 77-year-old male who presented to [facility] emergency room with a chief complaint of severe weakness. Patient stated that he was in the bathroom when he felt extremely weak he eased himself down to the floor he was not able to stand up or walk due to severe weakness he denies any loss of consciousness he denies any chest pain or shortness of breath, he was able to crawl and called EMS and was brought to emergency room. He was evaluated in the emergency room vital examination on presentation revealed a temperature of 99.1 pulse 60 respiration 18 blood pressure 154/96 pulse ox 96% on room air Laboratory data reveals a white blood count of 8.1 hemoglobin 11.7 platelet count 298 sodium 135 potassium 3.9 chloride 105 CO2 22 BUN 19 creatinine 0.53 Testing in the emergency room revealed EKG done in the emergency room revealed sinus bradycardia otherwise no significant abnormality, chest x-ray revealed no acute cardiopulmonary disease. Urine analysis did not reveal any evidence of urinary tract infection. Patient was admitted to medical floor for further evaluation and treatment patient has a known history of right total knee arthroplasty with subsequence infection and removal of hardware patient received IV antibiotics, up to 2 weeks ago. On 12/13/2023 patient is alert and oriented 3. Awaiting infectious disease and urology consults. UA negative. Influenza RSV and COVID-19 negative. Current vital signs temp 98.4, height 66, respiratory rate 16, blood pressure 146 with pulse ox of 90% on room air Objective - Vital Signs Vital signs: Vital Signs Temp 97.8 F 12/13/23 07:55 Pulse 57 L 12/13/23 07:55 Resp 16 12/13/23 07:55 BP 170/92 12/13/23 07:55 Pulse Ox 100 12/13/23 07:39 FiO2 Intake & Output 12/12/23 12/13/23 12/13/23 18:59 06:59 18:59 Output Total 950 1500 Balance -950 -1500 Weight 62.596 kg Output: Urine 950 1500 Other: Voiding Method Indwelling Catheter Indwelling Catheter # Bowel Movements 1 - Exam In general patient is alert and oriented x 3 in no distress HEENT head normocephalic and atraumatic Neck is supple no JVD no goiter no lymphadenopathy no carotid bruit Chest examination is clear to auscultation no crackles no wheezing Cardiac exam reveals regular heart sounds S1 and S2 no gallops no murmurs Abdomen is soft nontender no organomegaly with normal bowel sounds Extremity exam reveals no edema no cyanosis or clubbing Neurological examination reveals no gross focal deficits - Labs CBC & Chem 7: 12/13/23 04:24 12/13/23 04:24 Labs: Abnormal Lab Results - Last 24 Hours (Table) 12/12/23 12/12/23 12/13/23 Range/Units 07:10 07:10 04:24 RBC 3.77 L 3.92 L (4.40-5.60) X 10*6/uL Hgb 10.1 L 10.4 L (13.0-17.0) g/dL Hct 32.2 L 33.1 L (39.6-50.0) % MCH 26.8 L 26.5 L (27.0-32.0) pg MCHC 31.4 L 31.4 L (32.0-37.0) g/dL RDW 15.8 H 15.8 H (11.5-14.5) % Calcium (8.7-10.3) mg/dL AST 10 L (14-35) U/L ALT 8 L (10-49) U/L Total Protein 5.3 L (6.2-8.2) g/dL Albumin 3.3 L (3.8-4.9) g/dL Albumin/Globulin Ratio (1.60-3.17) Ratio 12/13/23 Range/Units 04:24 RBC (4.40-5.60) X 10*6/uL Hgb (13.0-17.0) g/dL Hct (39.6-50.0) % MCH (27.0-32.0) pg MCHC (32.0-37.0) g/dL RDW (11.5-14.5) % Calcium 8.5 L (8.7-10.3) mg/dL AST 11 L (14-35) U/L ALT 8 L (10-49) U/L Total Protein 5.3 L (6.2-8.2) g/dL Albumin 3.2 L (3.8-4.9) g/dL Albumin/Globulin Ratio 1.52 L (1.60-3.17) Ratio Assessment and Plan Plan: Episode of severe weakness with fall to the floor and difficulty standing and walking History of knee infection with IV antibiotic therapy recently up to 2 weeks ago. Urinary retention in the emergency room required Farooq catheter placement Underlying history of hypertension Underlying history of benign prostatic hypertrophy Underlying history of osteoarthritis Underlying history of chronic obstructive pulmonary disease Previous history of stroke Underlying history of gastroesophageal reflux disease At this time patient was seen and examined on the medical floor Home medications reviewed and reordered Physical therapy and occupational therapy consult Consultation for infectious disease was initiated to review knee infection and any need for further antibiotic Consultation for urology was initiated regarding urinary retention Will follow closely
[2023-12-13] MEDS: amLODIPine 5 MG TAB PO SCH (16:54)
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
[2023-12-14] MEDS: LOSARTAN 50 MG TAB PO SCH (08:27)
--- NOTE | 2023-12-14 10:41 | P.DS ---
Providers Date of admission: 12/11/23 14:38 Expected date of discharge: 12/14/23 Attending physician: Malcom Guallpa Consults: 12/12/23 17:52 Consult Physician Routine Consulting Provider: Nick Harvey Consult Reason/Comments: Urinary retention Do you want consulting provider notified?: Yes 12/12/23 18:04 Consult Physician Routine Consulting Provider: Sixto Stewart Consult Reason/Comments: history of knee infection Do you want consulting provider notified?: Yes Primary care physician: Layla Aleman Hospital Course: Discharge diagnosis Episode of severe weakness with fall to the floor and difficulty standing and walking History of knee infection with IV antibiotic therapy recently up to 2 weeks ago. Urinary retention in the emergency room required Farooq catheter placement Underlying history of hypertension Underlying history of benign prostatic hypertrophy Underlying history of osteoarthritis Underlying history of chronic obstructive pulmonary disease Previous history of stroke Underlying history of gastroesophageal reflux disease Hospital course Thom Trevino, is a 77-year-old male who presented to [facility] emergency room with a chief complaint of severe weakness. Patient stated that he was in the bathroom when he felt extremely weak he eased himself down to the floor he was not able to stand up or walk due to severe weakness he denies any loss of consciousness he denies any chest pain or shortness of breath, he was able to crawl and called EMS and was brought to emergency room. He was evaluated in the emergency room vital examination on presentation revealed a temperature of 99.1 pulse 60 respiration 18 blood pressure 154/96 pulse ox 96% on room air Laboratory data reveals a white blood count of 8.1 hemoglobin 11.7 platelet count 298 sodium 135 potassium 3.9 chloride 105 CO2 22 BUN 19 creatinine 0.53 Testing in the emergency room revealed EKG done in the emergency room revealed sinus bradycardia otherwise no significant abnormality, chest x-ray revealed no acute cardiopulmonary disease. Urine analysis did not reveal any evidence of urinary tract infection. Patient was admitted to medical floor for further evaluation and treatment patient has a known history of right total knee arthroplasty with subsequence infection and removal of hardware patient received IV antibiotics, up to 2 weeks ago. On 12/13/2023 patient is alert and oriented 3. Awaiting infectious disease and urology consults. UA negative. Influenza RSV and COVID-19 negative. Current vital signs temp 98.4, height 66, respiratory rate 16, blood pressure 146 with pulse ox of 90% on room air On 12/14/2023 patient is alert and oriented x 3. Discussed case with infectious disease no need for antibiotics upon discharge. Patient has scheduled follow-up appointment with orthopedic services this Tuesday. Patient was also evaluated by urology services. Per urology services remove Farooq catheter prior to discharge for voiding trial if he continues to empty his bladder incompletely he may require Farooq catheter be replaced. This was discussed with nursing staff. Current vital signs Temp 97.7, rate 60, blood pressure 159/80 with a pulse ox of 97% on room air Patient Condition at Discharge: Stable Plan - Discharge Summary Discharge Rx Participant: Yes New Discharge Prescriptions: New Losartan [Cozaar] 100 mg PO DAILY #0 tab amLODIPine [Norvasc] 5 mg PO DAILY tab Continue Tamsulosin [Flomax] 0.4 mg PO DAILY Timolol [Betimol 0.25% Ophth Soln] 1 drop RIGHT EYE BID Cyanocobalamin [Vitamin B-12] 500 mcg PO DAILY Melatonin 1 mg PO HS Aspirin EC [Ecotrin Low Dose] 81 mg PO DAILY Acetaminophen [Tylenol] 650 mg PO Q4H PRN PRN Reason: Pain HYDROcodone/APAP 5-325MG [[place] 5-325] 1 tab PO Q4HR PRN 3 Days #18 tab PRN Reason: Pain Atorvastatin [Lipitor] 40 mg PO HS 30 Days #30 tab Clopidogrel Bisulfate [Plavix] 75 mg PO DAILY Cholecalciferol [Vitamin D3 (125 Mcg = 5000 Iu)] 125 mcg PO DAILY Sennosides-Docusate Sodium [Senokot-S] 1 tab PO DAILY Omeprazole [PriLOSEC] 20 mg PO DAILY Discontinued Losartan Potassium [Cozaar] 50 mg PO DAILY Discharge Medication List Tamsulosin [Flomax] 0.4 mg PO DAILY 11/06/16 [History] Atorvastatin [Lipitor] 40 mg PO HS 30 Days #30 tab 04/08/21 [Rx] Clopidogrel Bisulfate [Plavix] 75 mg PO DAILY 05/08/21 [History] Cholecalciferol [Vitamin D3 (125 Mcg = 5000 Iu)] 125 mcg PO DAILY 11/03/23 [History] Timolol [Betimol 0.25% Ophth Soln] 1 drop RIGHT EYE BID 11/03/23 [History] Acetaminophen [Tylenol] 650 mg PO Q4H PRN 12/11/23 [History] Aspirin EC [Ecotrin Low Dose] 81 mg PO DAILY 12/11/23 [History] Cyanocobalamin [Vitamin B-12] 500 mcg PO DAILY 12/11/23 [History] Melatonin 1 mg PO HS 12/11/23 [History] Omeprazole [PriLOSEC] 20 mg PO DAILY 12/11/23 [History] Sennosides-Docusate Sodium [Senokot-S] 1 tab PO DAILY 12/11/23 [History] HYDROcodone/APAP 5-325MG [[place] 5-325] 1 tab PO Q4HR PRN 3 Days #18 tab 12/14/23 [Rx] Losartan [Cozaar] 100 mg PO DAILY #0 tab 12/14/23 [Rx] amLODIPine [Norvasc] 5 mg PO DAILY tab 12/14/23 [Rx] Follow up Appointment(s)/Referral(s): Layla Aleman MD [Primary Care Provider] - 1-2 days Activity/Diet/Wound Care/Special Instructions: Activity as tolerated Discharge Disposition: TRANSFER TO SNF/ECF
[2023-12-14 10:57] LABS: Basophils # (A) 0.06 X 10*3/uL (0.00-0.10); Basophils % (A) 0.9 %; Eosinophils # (A) 0.31 X 10*3/uL (0.04-0.35); Eosinophils % (A) 4.9 %; HCT 34.8 % (39.6-50.0); HGB 11.1 g/dL (13.0-17.0); Lymphocytes % (A) 23.5 %; MCH 26.3 pg (27.0-32.0); MCHC 31.9 g/dL (32.0-37.0); MCV 82.5 FL (80.0-97.0); Mean Platelet Volume 10.2 FL (9.5-12.2); Monocytes # (A) 0.38 X 10*3/uL (0.20-1.00); Monocytes % (A) 5.9 %; NRBC Per 100 WBC 0 X 10*3/uL (0.00-0.01); Neutrophils # (A) 4.12 X 10*3/uL (1.80-7.70); Neutrophils % (A) 64.5 %; Platelet Count 361 X 10*3/uL (140-440); RBC 4.22 X 10*6/uL (4.40-5.60); RDW 15.3 % (11.5-14.5); WBC 6.39 X 10*3/uL (4.50-10.00)
[2023-12-14 11:15] LABS: ALT 7 U/L (10-49); AST 10 U/L (14-35); Albumin 3.4 g/dL (3.8-4.9); Albumin/Globulin Ratio 1.48 Ratio (1.60-3.17); Alkaline Phosphatase 104 U/L (41-126); Calcium 9.1 mg/dL (8.7-10.3); Carbon Dioxide 23.5 mmol/L (21.6-31.8); Chloride 103 mmol/L (96-109); Globulin 2.3 g/dL (1.6-3.3); Glucose 98 mg/dL (70-110); Potassium 3.6 mmol/L (3.5-5.5); Sodium 137 mmol/L (135-145); Total Bilirubin 0.4 mg/dL (0.3-1.2); Total Protein 5.7 g/dL (6.2-8.2)
--- NOTE | 2023-12-14 12:30 | P.PN ---
Subjective Progress Note Date: 12/14/23 Principal diagnosis: Reason for follow-up is recent right knee septic arthritis 4 patient is a 77-year-old male with a past medical history significant for hypertension reflux CVA TIA COPD patient recently did have a right knee replacement done by Dr. Panchal subsequently got infected for the patient was transferred to [facility] apparently the patient did have a stage I procedure with removal of the infected hardware and placement of antibiotic spacer, Patient to complete his IV by therapy about 2 weeks ago not been to the hospital weakness and fall patient has been afebrile white count normal On today's evaluation that is 12/14/2023, Patient is afebrile patient is currently on room air and denies having any shortness of breath, the patient de nies any chest pain or cough, the patient denies any nausea vomiting did not have any abdominal pain and no diarrhea, patient denies any pain to the right knee area. Patient white count is 6.39, creatinine 0.5 Objective - Vital Signs Vital signs: Vital Signs Temp 97.5 F L 12/14/23 08:00 Pulse 55 L 12/14/23 08:00 Resp 14 12/14/23 08:00 BP 171/90 12/14/23 08:00 Pulse Ox 96 12/14/23 08:00 FiO2 Intake & Output 12/13/23 12/14/23 12/14/23 18:59 06:59 18:59 Output Total 1800 3300 500 Balance -1800 -3300 -500 Output: Urine 1800 3300 500 Uretheral (Farooq) 500 Other: Voiding Method Indwelling Catheter Indwelling Catheter Indwelling Catheter # Bowel Movements 1 - Exam GENERAL DESCRIPTION: An elderly male lying in bed in no distress RESPIRATORY SYSTEM: Unlabored breathing , decreased breath sounds at bases HEART: S1 S2 regular rate and rhythm , ABDOMEN: Soft , no tenderness EXTREMITIES: Right knee incision is currently healed minimal swelling no redness no warmth - Labs CBC & Chem 7: 12/14/23 06:59 12/14/23 06:59 Assessment and Plan (1) Septic arthritis of knee, right Current Visit: Yes Status: Acute Code(s): M00.9 - PYOGENIC ARTHRITIS, UNSPECIFIED SNOMED Code(s): 689964403 Plan: 1patient will with a recent history of right knee septic arthritis requiring excisional arthroplasty and antibiotic spacer placement patient also have a plastic surgery for healing of the right knee wound, the patient incision is currently healed patient is not running any fever white count is normal and no evidence of any cellulitis or warmth to the right knee area more likely meaning adequate treatment of his underlying septic arthritis patient is currently in the waiting period before any aspirate will be done which is scheduled for this Tuesday, has low clinical suspicious for ongoing septic arthritis and no other obvious focus of infection we will hold on adding any systemic antibiotic therapy at this point this has been explained in detail with the patient who agreed with the plan 2-patient advised no antibiotic on discharge and to follow-up with the orthopedic surgeon Tuesday for aspiration of the knee Dictation was produced using [employer] dictation software. please excuse any grammatical, word or spelling errors. Time with Patient: Less than 30
[2023-12-14 13:08] VITALS: BP 155/83; PULSE 55; RESP 17; TEMP 97.6
== END 2023-12-14 14:28 ==
LOC: EC 09:22 → 5NMEDONC 14:38
PROVIDERS: ADMIT Internal Medicine; ATTEND Internal Medicine
DX: R53.1 Weakness (principal); M00.9 Pyogenic arthritis, unspecified; R26.2 Difficulty in walking, not elsewhere classified; M19.90 Unspecified osteoarthritis, unspecified site; J44.9 Chronic obstructive pulmonary disease, unspecified; K21.9 Gastro-esophageal reflux disease without esophagitis; I10 Essential (primary) hypertension; N40.1 Benign prostatic hyperplasia with lower urinary tract symptoms; R33.8 Other retention of urine; Z20.822 Contact with and (suspected) exposure to COVID-19; Z86.73 Personal history of transient ischemic attack (TIA), and cerebral infarction without residual deficits; Z87.891 Personal history of nicotine dependence; Z79.02 Long term (current) use of antithrombotics/antiplatelets; Z79.899 Other long term (current) drug therapy; Z91.040 Latex allergy status
CPT/HCPCS: 96361 ×5; 96372 ×2; 96360; 99285; 36415; 94760; 93005; 97530 ×4; 97162; 97166; 80053 ×4; 83605; 83735; 84443; 84484; 85025 ×4; 85610; 85730; 81003; 87636; 71046; G0378 ×4; J1650 ×2

== ENCOUNTER 2024-09-04 13:49 | Emergency (ER) | payer MEDICARE ==
[2024-09-04 14:16] VITALS: RESP 16; TEMP 97.8
[2024-09-04] MEDS: MORPHINE SULFATE 2 MG/ML SYRINGE IM ONE (15:24)
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
--- NOTE | 2024-09-04 15:57 | XR ---
EXAMINATION TYPE: XR hand complete LT DATE OF EXAM: 09/04/2024 3:44 PM COMPARISON: None available.Z CLINICAL INDICATION: Male, 78 years old with history of left hand injury; [facility] TECHNIQUE: XR hand complete LT Frontal, lateral and oblique views were obtained. FINDINGS: There is dislocation of the fourth digit PIP joint with relative ulnar dislocation of the middle phal anx relative to the proximal phalanx. No definite corresponding acute fracture. Soft tissue swelling of the fourth digit noted. Visualized carpal alignment appears maintained. IMPRESSION: Dislocation of the fourth digit PIP joint as above. No definite corresponding acute fracture. [facility], Workstation: [facility], 09/04/2024 3:55 PM
--- NOTE | 2024-09-04 16:52 | XR ---
EXAMINATION TYPE: XR hand complete LT DATE OF EXAM: 09/04/2024 4:44 PM COMPARISON: Same day CLINICAL INDICATION: Male, 78 years old with history of left hand injury s/p reduction; [facility] TECHNIQUE: XR hand complete LT Frontal, lateral and oblique views were obtained. FINDINGS/IMPRESSION: 1. Interval reduction of previous fourth digit proximal interphalangeal joint dislocation. 2. Small avulsion fracture of the fourth digit middle phalanx base volarly. [facility], Workstation: [id number], 09/04/2024 4:50 PM
[2024-09-04 17:17] VITALS: BP 129/86; PULSE 67
== END 2024-09-04 17:17 | disposition home or self-care (01) ==
LOC: EC 13:49
DX: S63.285A Dislocation of proximal interphalangeal joint of left ring finger, initial encounter (principal); Z87.891 Personal history of nicotine dependence; Z91.040 Latex allergy status; Z91.048 Other nonmedicinal substance allergy status; Z86.73 Personal history of transient ischemic attack (TIA), and cerebral infarction without residual deficits; W01.0XXA Fall on same level from slipping, tripping and stumbling without subsequent striking against object, initial encounter
CPT/HCPCS: 73130; 99283; 96372; J2270

== ENCOUNTER → 2025-01-21 | Outpatient (CLI) | payer MEDICARE ==
--- NOTE | 2025-01-22 08:48 | MR ---
EXAMINATION TYPE: MR brain/orbits wo/w con DATE OF EXAM: 01/21/2025 9:59 PM COMPARISON: 04/07/2021. CLINICAL INDICATION: Male, 79 years old with history of H54.7; PHH, Right eye losing side for more th an 2 months. TECHNIQUE: Multi planar, multi sequence imaging was performed through the orbits/face. Post contrast imaging was performed after the administration of 6.5 mL Gadobutrol FINDINGS, ORBITS: The globes appear symmetrical. Bilaterally aphakia.. Signal intensity of the optic nerves are within normal limits. The intraorbital fat appears preserved. Both lacrimal glands are unremarkable. The extraocular muscles appear symmetric. After administration of contrast, no abnormal enhancement is seen. FINDINGS, BRAIN: The booker-white junctions, ventricular system, and cisterns do appear unremarkable. Diffusion-weighted imaging shows no evidence of restricted diffusion. Scattered foci and confluent areas of white matter change there is evidence of bilateral injuries similar perpendicular to the simran tricles. Areas of high T2 signal intensity are seen within the periventricular white matter. [place]ver[place] us sinus is within normal limits. After administration of contrast, no abnormal enhancement is seen within the brain. The bone marrow signal is within normal limits. Paranasal sinuses and mastoid air cells: No significant paranasal sinus disease. Visualized orbits: Orbital contents are intact. IMPRESSION: Mild motion artifact 1. No evidence of intraorbital mass or significant abnormality. 2. No evidence of intracranial mass nor acute/subacute CVA accident. 3. Nonspecific white matter changes are identified likely small vessel ischemic disease. 4. Bilateral remote injuries suggested somewhat orthogonal to the lateral ventricles correlate for hi story of demyelination versus CVA. These appear new from 04/07/2021. [facility], , 01/22/2025 8:46 AM
== END | disposition home or self-care (01) ==
LOC: RADMRIMAIN 20:30
PROVIDERS: ATTEND Ophthalmology
DX: H54.61 Unqualified visual loss, right eye, normal vision left eye (principal); H27.03 Aphakia, bilateral
CPT/HCPCS: 70543; 70553; A9585